=== PATIENT | male | born 1970 | race Caucasian/White ===

== ENCOUNTER → 2017-11-10 09:22 | Outpatient (CLI) | payer BC, SELFPAY ==
[2017-11-10 09:41] LABS: Basophils # 0.1 K/mm3 (0-0.2); Basophils % 0.7 % (0.1-2.0); Eosinophils # 0.2 K/mm3 (0.0-0.4); Eosinophils % 2.1 % (0.1-12.0); Hematocrit 48.5 % (42.0-52.0); Lymphocytes # 2.3 K/mm3 (0.7-4.5); Lymphocytes % 28.1 K/mm3 (10-50); Mean Corpuscular HGB Conc 30.9 g/dL (31.8-35.4); Mean Corpuscular Hemoglobin 26.8 pg (27.0-31.2); Mean Corpuscular Volume 86.8 fl (80-94); Mean Platelet Volume 7.8 fl (7.4-10.4); Monocytes # 0.5 K/mm3 (0.1-1.0); Monocytes % 5.4 % (1.7-9.3); Neutrophils # 5.3 K/mm3 (1.8-7.8); Neutrophils % 63.8 % (37.0-80.0); Platelet Count 287 K/mm3 (142-424); Red Blood Count 5.59 M/mm3 (4.60-6.20); Red Cell Distribution Width 13.5 % (11.5-17.5); White Blood Count 8.4 K/mm3 (4.8-10.8)
[2017-11-10 10:37] LABS: Alanine Aminotransferase 40 U/L (12-78); Albumin Level 3.9 gm/dL (3.4-5.0); Alkaline Phosphatase 81 U/L (46-116); Anion Gap 13.8 mEq/L (5-15); Aspartate Amino Transferase 30 U/L (15-37); Bilirubin,Total 0.7 mg/dL (0.2-1.0); Blood Urea Nitrogen 16 mg/dL (7-18); Calcium 9.5 mg/dL (8.5-10.1); Carbon Dioxide 30 mmol/L (21.0-32.0); Chloride 104 mmol/L (98-107); Creatinine,Serum 0.78 mg/dL (0.70-1.30); Estimated Glomerular Filt Rate 108 ml/min (>60); GFR (African American) 130 ML/MIN (>60); Globulin 3.8 gm/dl (1.3-3.2); Glucose 257 mg/dL (74-106); Potassium 4.8 mmoL/L (3.5-5.1); Sodium 143 mmol/L (136-145); Total Protein,Serum 7.7 gm/dL (6.4-8.2)
== END ==
PROVIDERS: Visit Provider Internal Medicine Adolescent Medicine
DX: E11.9 Type 2 diabetes mellitus without complications (principal); E78.2 Mixed hyperlipidemia
CPT/HCPCS: 36415; 80053; 83036; 85025

== ENCOUNTER → 2021-02-26 07:34 | Outpatient (CLI) | payer BC, SELFPAY ==
[2021-02-26 07:52] LABS: Basophils # 0.1 K/mm3 (0-0.2); Eosinophils # 0.2 K/mm3 (0.0-0.4); Eosinophils % 2.1 % (0.1-12.0); Hematocrit 50.3 % (42.0-52.0); Lymphocytes # 3.5 K/mm3 (0.7-4.5); Lymphocytes % 37.1 % (10-50); Mean Corpuscular HGB Conc 31.8 g/dL (31.8-35.4); Mean Corpuscular Hemoglobin 28.5 pg (27.0-31.2); Mean Corpuscular Volume 89.6 fl (80-94); Mean Platelet Volume 7.3 fl (7.4-10.4); Monocytes # 0.6 K/mm3 (0.1-1.0); Neutrophils # 5.1 K/mm3 (1.8-7.8); Neutrophils % 53.8 % (37.0-80.0); Platelet Count 297 K/mm3 (142-424); Red Blood Count 5.61 M/mm3 (4.60-6.20); Red Cell Distribution Width 13.1 % (11.5-17.5); White Blood Count 9.4 K/mm3 (4.8-10.8)
[2021-02-26 08:48] LABS: Hemoglobin A1C 10.2 % (4.0-6.0)
[2021-02-26 10:18] LABS: Chloride 102 mmol/L (98-107); Potassium 5.2 mmoL/L (3.5-5.1); Sodium 140 mmol/L (136-145)
[2021-02-26 10:20] LABS: Alanine Aminotransferase 30 U/L (12-78); Alkaline Phosphatase 85 U/L (38-126); Aspartate Amino Transferase 30 U/L (17-59); Bilirubin,Total 0.7 mg/dl (0.2-1.3); Blood Urea Nitrogen 18 mg/dl (9-20); Estimated Glomerular Filt Rate 144 ml/min (>60); GFR (African American) 174 ML/MIN (>60)
[2021-02-26 10:21] LABS: Albumin Level 4.2 g/dl (3.5-5.0); Albumin/Globulin Ratio 1.3 (1.1-1.8); Anion Gap 16.2 mEq/L (5-15); Calcium 9.4 mg/dl (8.4-10.2); Carbon Dioxide 27 mmol/L (22.0-30.0); Chol/HDL Ratio 4.7 (1-3.5); Cholesterol 207 mg/dl (140-200); Globulin 3.2 g/dL (1.3-3.2); Glucose 259 mg/dl (74-100); HDL Cholesterol 44 mg/dl (40-60); Total Protein,Serum 7.4 g/dl (6.3-8.2); Triglycerides 303 mg/dl (30-150); VLDL Cholesterol 61 mg/dL (0-40)
[2021-02-26 10:32] LABS: Direct LDL Cholesterol 113.07 mg/dL (100-129)
== END ==
PROVIDERS: Visit Provider Internal Medicine Adolescent Medicine
DX: E11.9 Type 2 diabetes mellitus without complications (principal); E78.2 Mixed hyperlipidemia
CPT/HCPCS: 36415; 80053; 80061; 83036; 85025

== ENCOUNTER 2021-04-11 08:00 | Outpatient (RCR) | payer BC, SELFPAY ==
--- NOTE | 2021-03-09 09:10 | HMH.PTOPEV ---
PT Outpatient Evaluation Rehab PT Outpatient Evaluation Start: 03/09/21 08:34 Freq: Status: Active Protocol: Document 03/09/21 08:35 KYAMARISOL (Rec: 03/09/21 09:09 OLYLISANDRO [id number]) Electronically Signed By Abhishek Resendiz, PT 03/09/21 08:35 Outpatient Therapy Subjective History Subjective History This is the initial Physical Therapy evaluation for Cali Guan. Pt is a 50 y/o male referred to PT for c/o B knee pain and R>L hip pain. Pt has past surgical history of L torn quadriceps tendon s/p fall ~ 8-9 years ago. Pt did several months of therapy w/ out incident and was able to return to full function. Pt began exercising to assist in weight loss and maintain blood sugar levels to help w/ type 2 DM. Pt reports he began havng significant pain in B knees and R hip w/ exercise and recently fell while walking causing R knee hyper- extension and left knee hyper- flexion. Chief Complaint Pain,Weakness Symptom Type Ache,Throb,Sharp,Stabbing Symptoms Relieved By Rest/Positioning,Ice Symptoms Aggravated By Physical Activity,Walking Prior Functional Limitations None Current Functional Limitations Housework,Standing,Squatting, Recreation Activity,Walking, Stairs Symptom Description Intermittent Hip/Knee Eval Gait Observation General Gait Pattern Observation Wide Based Gait Assistive Device Assistive Devices None / NA Palpation Tenderness left Knee Palpation Finding Tenderness Knee Palpation Overall Comment TTP pes anserine, MCL and quad tendon right Knee Palpation Finding Tenderness Knee Palpation Overall Comment TTP R pes anserine, MCL, quad tendon, R hip GT and Glut med/ min MM Hip Palpation Findings Tenderness MMT bilateral Hip Abduction Strength Grade 4- Good- Hip External Rotation Strength Grade 4- Good- Hip Internal Rotation Strength Grade 4- Good- Knee Extension Strength Grade 4 Good Knee Flexion Strength Grade 4 Good ROM Hip ROM Reason Not Measured Within Functional Limits Knee ROM Reason Not Measured Within Func
== END 2021-04-11 08:05 | disposition home or self-care (01) ==
LOC: PT 08:00
PROVIDERS: PCP Internal Medicine Adolescent Medicine; Visit Provider Internal Medicine Adolescent Medicine
DX: M25.562 Pain in left knee (principal); M25.561 Pain in right knee
CPT/HCPCS: 97010; 97014; 97033; 97110; 97163; 97164; G0283

== ENCOUNTER → 2021-06-07 14:09 | Outpatient (CLI) | payer BC, SELFPAY | PROVIDERS: PCP Internal Medicine Adolescent Medicine; Visit Provider Nurse Practitioner | DX: U07.1 COVID-19 (principal) | CPT/HCPCS: C9803; U0003; U0005 ==

== ENCOUNTER 2023-07-21 09:48 | Outpatient (CLI) | payer BC, SELFPAY ==
[2023-07-21 10:28] LABS: Alanine Aminotransferase 29 U/L (12-78); Albumin Level 4.2 g/dl (3.5-5.0); Albumin/Globulin Ratio 1.6 (1.1-1.8); Alkaline Phosphatase 77 U/L (38-126); Anion Gap 14.4 mEq/L (5-15); Aspartate Amino Transferase 30 U/L (17-59); Bilirubin,Total 0.8 mg/dl (0.2-1.3); Blood Urea Nitrogen 12 mg/dl (9-20); Calcium 9.4 mg/dl (8.4-10.2); Carbon Dioxide 24 mmol/L (22.0-30.0); Chloride 104 mmol/L (98-107); Chol/HDL Ratio 3.4 (1-3.5); Cholesterol 130 mg/dl (140-200); Estimated Glomerular Filt Rate 142 ml/min (>60); GFR (African American) 172 ML/MIN (>60); Globulin 2.7 g/dL (1.3-3.2); Glucose 261 mg/dl (74-100); HDL Cholesterol 38 mg/dl (40-60); Potassium 4.4 mmoL/L (3.5-5.1); Sodium 138 mmol/L (136-145); Total Protein,Serum 6.9 g/dl (6.3-8.2); Triglycerides 164 mg/dl (30-150); VLDL Cholesterol 33 mg/dL (0-40)
[2023-07-21 10:39] LABS: Direct LDL Cholesterol 62.22 mg/dL (100-129)
[2023-07-21 10:50] LABS: Basophils # 0.1 K/mm3 (0-0.2); Basophils % 0.9 % (0.1-2.0); Eosinophils # 0.2 K/mm3 (0.0-0.4); Eosinophils % 1.9 % (0.1-12.0); Hematocrit 46.6 % (42.0-52.0); Hemoglobin 15.3 g/dL (14.1-18.0); Lymphocytes # 3.3 K/mm3 (0.7-4.5); Lymphocytes % 33.7 % (10-50); Mean Corpuscular HGB Conc 32.9 g/dL (31.8-35.4); Mean Corpuscular Hemoglobin 29.1 pg (27.0-31.2); Mean Corpuscular Volume 88.5 fl (80-94); Mean Platelet Volume 8.5 fl (7.4-10.4); Monocytes # 0.4 K/mm3 (0.1-1.0); Monocytes % 4.6 % (1.7-9.3); Neutrophils # 5.8 K/mm3 (1.8-7.8); Platelet Count 281 K/mm3 (142-424); Red Blood Count 5.26 M/mm3 (4.60-6.20); Red Cell Distribution Width 13.6 % (11.5-17.5); White Blood Count 9.8 K/mm3 (4.8-10.8)
[2023-07-21 11:05] LABS: Hemoglobin A1C 9.6 % (4.0-6.0)
== END 2023-07-21 23:59 ==
PROVIDERS: PCP Internal Medicine Adolescent Medicine; Visit Provider Internal Medicine Adolescent Medicine
DX: E11.69 Type 2 diabetes mellitus with other specified complication (principal); E78.2 Mixed hyperlipidemia
CPT/HCPCS: 36415; 80053; 80061; 83036; 85025

== ENCOUNTER 2025-04-10 08:56 | Outpatient (CLI) | payer BC, SELFPAY ==
--- OUTSIDE RECORDS SUMMARY | 2025-03-09 08:00 | XMS_ITS | Continuity of Care Document ---
Author Organization [facility] Address [address] [place] [id number] Phone Care Team Providers Care Commercial Lawn Specialist Name Role Phone Gretchen Hays OD Unavailable Unavailable Allergies, Adverse Reactions, Alerts Substance Reaction Status Criticality No Known Allergies Active No Inform ation Medications Medication Instructions Dosage Effective Dates (start - stop) Status Comments Xdemvy 0.25 % eye drops instill 1 drop by ophthalmic route every 12 hours for 6 weeks into both eyes 1.00 drop - Active Demodex : B88.0. Blepharitis of lt eye, upper and lower eyelids: H01.00B. Blepharitis of right eye, upper and lower eyelids: H01.00A. Mounjaro 15 mg/0.5 mL subcutaneous pen injector inject (15MG) by subcutaneous route every week 15 MG - Active Vitamin B-12 1,000 mcg tablet take 1 capsule by oral route every day for 1 day 1 capsule - Active ginseng 100 mg capsule - Active ginkgo biloba 40 mg tablet - Active Farxiga 10 mg tablet take 1 tablet by oral route every day in the morning 10 MG - Active potassium 99 mg tablet take 1 capsule by oral route every day - Active [place]wood 3 Fish Oil 684 mg-1,200 mg capsule,delayed release take 2 Capsule by Oral route every day 2 Capsule - Active Aspirin Low Dose 81 mg tablet,delayed release take 1 tablet by oral route every day 81 MG - Active omeprazole 20 mg capsule,delayed release take 1 capsule by oral route every day before a meal 20 MG - Active Zoloft 50 mg tablet take 1 tablet by oral route every day 50 MG - Active lisinopril 10 mg tablet take 1 tablet by oral route every day 10 MG - Active glimepiride 2 mg tablet take 1 tablet by oral route every day 2 MG - Active metformin ER 1,000 mg tablet,extended release 24hr take 1 tablet by oral route every day with the evening meal 1000 MG - Active Mounjaro 10 mg/0.5 mL subcutaneous pen injector inject (10MG) by subcutaneous route every week 10 MG - No Longer Active potassium 99 mg tablet take 1 capsule by oral route every day - No Longer Active Procedures Procedure Date OFFICE/OUTPATIENT VISIT, EST FUNDUS PHOTOGRAPHY WITH INTERPRETATION A ND REPORT OCT, Retina, W/Interp OFFICE/OUTPATIENT VISIT, EST FUNDUS PHOTOGRAPHY WITH INTERPRETATION A ND REPORT OFFICE/OUTPATIENT VISIT, EST FUNDUS PHOTOGRAPHY WITH INTERPRETATION A ND REPORT EYE EXAM, Comprehensive, Established Feb EYE EXAM, Comprehensive, Established Jan EYE EXAM, Comprehensive, Established October EYE EXAM, Comprehensive, Established October EYE EXAM, Comprehensive, Established Sep EYE EXAM, Comprehensive, Established Sep EYE EXAM, Comprehensive, New Advance Directives Directive Yes / No Effective Date File Name No Information Encounters Encounter Description Practice Location Reason(s) For Visit Diagnoses Date Provider Providers Copied on Encounter OFFICE/OUTPA TIENT VISIT, EST Solomon [facility], [address] [place] [address], [id number], tel:[phone] [place] dry AMD early stage OS (chief complaint) Type 2 DM w/o complicationDry AMD, Bilateral, Early StageDemodex BlepharitisBlephari tis of right eye, upper and lower eyelidsBlepharitis of lt eye, upper and lower eyelidsPVD OUCombined cataract, bilateral Feb- Saúl Godinez. [address] [place] [address], [id number] , . tel:[phone] Referring Provider: Marcelino Herr, [address] [place] [address], [id number] . tel:[phone] OFFICE/OUTPA TIENT VISIT, [facility], [address] [place] [address], [id number], tel:[phone] [place] Cat, DM and Dry AMD check (chief complaint) Type 2 DM w/o complicationDry AMD, Left Eye, Early StagePost LasikCombined cataract, bilateralDry Eye OU Sep-2 3 4 Hays Gretchen. [address] [place] [address], [id number] , . tel: [phone] Referring Provider: Marcelino Herr, [address] [place] [address], [id number] . tel:[phone] OFFICE/OUTPA TIENT VISIT, [facility] Solomon [facility], [address] [place] [address], [id number], tel:[phone] [place] cat ck (chief complaint) Dry AMD, Bilateral, Early StageType 2 DM w/o complicationCombine d cataract, bilateral Sep- 3 Hays Gretchen. [address] [place] [address], [id number] , . tel: [phone] Referring Provider: Marcelino Herr, [address] [place] [address], [id number] . tel:[phone] [facility], [address] [place] [address], [id number], tel:[phone] [place] Diabetic exam (chief complaint) Type 2 DM w/o complicationDry AMD, Left Eye, Early StagePost LasikCombined cataract, bilateral Sep-1 2 2 Hays Gretchen. [address] [place] [address], [id number] , . tel:[phone] Referring Provider: Marcelino Herr, [address] [place] [address], [id number] . tel:[phone] [facility], [address] [place] [address], [id number], tel:[phone] [place] DM (chief complaint) Blepharitis of left upper eyelidBlepharitis of right upper eyelidDry Eye OUType 2 DM w/o complicationDry AMD, Left Eye, Early Stagepseudophakia 0202 1 Percal Rosa. [address] [place] [address], [id number] , . tel:[phone] Referring Provider: Marcelino Herr, [address] [place] [address], [id number] . tel:[phone] [facility], [address] [place] [address], [id number], tel:[phone] [address] DM check (chief complaint) Blephariti s (chief complaint) Type 2 DM w/o complicationDemodex BlepharitisMGD, Right eyeMGD, Left eye 3-201 9 Yeni Benson. [address] [place] [address], [id number] , . tel:[phone] Referring Provider: Marcelino Herr, [address] [place] [address], [id number] . tel:[phone] [facility], [address] [place] [address], [id number], tel:[phone] [address] [place] NIDDM (chief complaint) Lasik ck (chief complaint) Type 2 DM w/o complicationBlephar itis, right upper lidBlepharitis, left upper lidMGD 0 7-201 8 Yeni Benson. [address] [place] [address], [id number] , . tel:[phone] Referring Provider: Marcelino Herr, [address] [place] [address], [id number] . tel:[phone] [facility], [address] [place] [address], [id number], tel:[phone] VAN Jiangricardo John WADE Diabetic ck (chief complaint) Type 2 DM w/o complicationPost Lasik 7 Yeni Benson. [address] [place] [address], [id number] , . tel:[phone] Referring Provider: Marcelino Herr, [address] [place] [address], [id number] . tel:[phone] [facility], [address] [place] [address], [id number], tel:[phone] VAN Yonathansusanricardo Lopez SHERI Yearly Diabetic Exam (chief complaint) Type 2 DM w/o complication 6 Yeni Benson. [address] [place] [address], [id number] , . tel: [phone] [facility], [address] [place] [address], [id number], tel:[phone] V[address] WADE diabetic exam (chief complaint) decreased vision (chief complaint) No Information 5 Yeni Benson. [address] [place] [address], [id number] , . tel: [phone] Family History Family Member Type Diagnosis Age At Onset Father Problem (finding) hypertension Mother Problem (finding) hypertension Immunizations Vaccine Date Status Comments Flu (split) (3 yrs or older) administered Source: Other Provider Payers Payer name Insurance type Covered green party ID Authoriza tion(s) [employer] BL [id number] Social History Type Description Quantity Date Captured Comments Alcohol Use Details No Caffeine Use Details coffee Tobacco Use Status Current non-smoker Smoking Status Never smoker Non-Smoking Tobacco Use Details : No Details Available : No Details Available Sex Male Chief Complaint And Reason For Visit From encounter dated '03/09/2025 12:00'. dry AMD early stage OS (chief complaint). Description: pt presents today for a yearly DFE in OU. vision in OU is steadily worsening since last visit. no glare noted. brown floaters have appeared since last visit. clear floaters in OU also noted but stable since last visit. dryness in OU noted but stable since last visit. PT c/o both eyes/lids being itchy, using OTC lid scrubs currently.p\ LASIK OU [id number] unknown BS [address] Neil herrera tears OU QAMpt is on new medications butunsure of which Reason For Referral Reason For Referral No Information Plan Of Treatment Date Type Action Status Appointment Cali Guan BOOKED Patient Education Blepharitis: Care Instr uctions completed History Of Present Illness Encounter Date Complaint History Of Prese nt Illness dry AMD early stage OS pt presen ts today for a yearly DFE in OU. vision in OU is steadily worsening since last visit. no glare noted. brown floaters have appeared since last visit. clear floaters in OU also noted but stable since last visit. dryness in OU noted but stable since last visit. PT c/o both eyes/lids being itchy, using OTC lid scrubs currently.p\ LASIK OU [id number] unknown BS [address] Neil herrera tears OU QAMpt is on new medications but unsure of which Cat, DM and Dry AMD check 1 year DFE Post LASIK OU Pt. states decreased near vision, no issues driving at night not bothered by glare and bright headlightslongstanding constant floater and stable Gtts: AT's OU PRNNIDDM2 Last A1C: 9.1 taken last 6 months ago managed by Dr. Sanchez FBSL: 185 2 weeks ago cat ck Pt presents for 1 year cat and DME ck. Pt states that his vision is not bad . Pt denies seeing any glare or halos from headlights. Pt does have to be closer to road signs to see them, but it is still tolerable. Pt can read print, he only has lighting issues, so he does need extra light. ET TheraTears PRN OU T2DM / LA1C ~7 6 months ago/ LBS 180s last week Diabetic exam Pt presents for yearly f/u for Diabetic exam OU; No prior Retinopathy. VA unchanged since last time; Although feels as if he's losing distance every year. H/o Dry eye OU; Blepharitis BUL secondary to Dry eye; Using ATs PRNDry AMD OS; Has 1 floater roaming around. Has had for a couple of years. Not currently bothersome but is very persistent at times. T2- NIDDM Last A1C - unknown; BS runs 180-[address] Ced Luo; DM 1 yr Type 2 DM w /o complications. Pt states vision is stable OU. Pt having floaters OS, no flashes OU. Uses Thera tears not daily, 1x daily if needed. DM check NIDDM type 2 kaveh gnosed 2009, FBS was 234 this morning. last A1C was 9 checked around 6 months ago, the patient noted he has an upcoming appointment with PCP Dr. Luo B/p in office was 120/70. The patient also stated FBS & A1C has been fluctuating due to insurance/ medication changes.VA is stable ,and has improved since last visit. denies flash/ floaters. Using OTC AT OU along with lid scrubs. Denies trouble with glare. Blepharitis The patient repo rts doing daily lid scrubs along with using OTC AT daily this has helped with irritation and dry eyes. TheraTears OU QD & prnshampoo/ lid scrubs OU dailyHx: Refractive sx. OU 1998 NIDDM The 47 year old male presents for yearly evaluation of NIDDM w/o complications OU. Diagnosed in 2009. Blood sugar runs around 280-300, 289 this morning. A1c was 9.0 when last checked a year ago. Managed by Dr. Luo. Lasik ck The patient is p resent for yearly Lasik ck OU (1998). Pt states vision has declined over the last year, more so at near. TheraTears PRN OU Diabetic ck The 46 year old male presents for evaluation of Diabetic ck in the right eye and left eye. Type 2 for 7 years. BS 278. AIC 11.0. distance vision>near vision has decreased over the past year. Pt does not wear any glasses for correction. Pt went off diabetes medication from Jan 2016-May 2016 in which the AIC # read high during that time. ABSThera Tears PRN OU Yearly Diabetic Exam Pt states d istance vision seems unchanged, but a little more trouble with near.BS-doesn't check [id number] diabetic exam The 44 year old male presents for evaluation of diabetic exam in the right eye and left eye. The condition is stable. Checks blood sugars daily. Blood pressure 130/82SE decreased vision The patient is present for evaluation of decreased vision in the right eye and left eye. It affects distance vision. The condition is moderate. The condition is described as blurring. In addition, the condition is associated with trouble reading signs - traffic, street signs and store signs. Feels the eyes may be dry at times.uses thera tears occasionalySe Functional Status Date Functional Assessmen t No Information Instructions Date Instruction Additional Infor ross 1 year DM DFE with OPTOS and mac OCT Related to Type 2 DM w/o complication Impression/Plan Related to Type 2 DM w/o complication Impression/Plan Related to Dry A MD, Bilateral, Early Stage Impression/Plan Impression/Plan Related to PVD O U Impression/Plan Related to Combi cirilo cataract, bilateral Impression/Plan Related to Type 2 DM w/o complication Impression/Plan Related to Dry A MD, Left Eye, Early Stage Impression/Plan Related to Combi cirilo cataract, bilateral Impression/Plan Related to Dry E ye OU 1 year DM, CAT, AMD DFE - optos Related to Dry AMD, Bilateral, Early Stage Impression/Plan Related to Combi cirilo cataract, bilateral Impression/Plan Related to Type 2 DM w/o complication Impression/Plan Related to Dry A MD, Bilateral, Early Stage 1 year CAT/DM DFE Related to Typ e 2 DM w/o complication Impression/Plan Related to Post Lasik Impression/Plan Related to Dry A MD, Left Eye, Early Stage Impression/Plan Related to Type 2 DM w/o complication Impression/Plan Related to Combi cirilo cataract, bilateral Impression/Plan Related to Dry A MD, Left Eye, Early Stage Impression/Plan 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 Impression/Plan Related to Type 2 DM w/o complication Impression/Plan EDN 1 year Diabetic Exam OU Rela crystal to Type 2 DM w/o complication Impression/Plan Related to Demod ex Blepharitis Impression/Plan Related to Type 2 DM w/o complication EDN 1 year DM check Related to T ype 2 DM w/o complication Impression/Plan Related to Type 2 DM w/o complication Impression/Plan 1 year VAD/Diabetic check Relate d to Type 2 DM w/o complication Follow up - 1 year V AD/Diabetic check Related to Type 2 DM w/o complication Impression/Plan - La sik results look good -stable Related to Post Lasik Impression/Plan - Pl an: Continue treatment as directed by your Physician/Composition Worker. Monitor yearly with dilated exam.Discussion: No diabetic retinopathy found. Monitor vision for sudden changes and call if any changes noted. Scribe:lc Related to Type 2 DM w/o complication EDN 1 year Diabetic Exam OU Rela crystal to Type 2 DM w/o complication Follow up - EDN 1 ye ar Diabetic Exam OU Related to Type 2 DM w/o complication Impression/Plan Related to Post Lasik Impression/Plan - Pl an: Continue treatment as directed by your Physician/Composition Worker. Monitor yearly with dilated exam.Discussion: No diabetic retinopathy found. Discussed ocular and systemic benefits of blood sugar control. Monitor vision for sudden changes and call if any changes noted. Scribe: RL Related to Type 2 DM w/o complication 1 year VAD/diabetic check Relate d to Diabetes Type II Follow up - 1 year V AD/diabetic check Related to Diabetes Type II Impression/Plan - Re turn Visit: Dr. Jaime 1 year diabetic examPlan:Continue treatment as directed by your Physician/Composition Worker.Discussion : No diabetic retinopathy found. Discussed ocular and systemic benefits of blood sugar control. Monitor vision for sudden changes and call if any changes noted. Scribe:lc Related to Diabetes Type II Impression/Plan - Re turn Visit: Dr. JaimePlan: Continue to monitorDiscussion:Lasik results still look good. Will need readers for up close, around age 47.Scribe:lc Related to Post LASIK Assessments Type Assessment Date assessment Type 2 DM w/o complication impression Type 2 DM w/o complication: E11. 9 assessment Dry AMD, Bilateral, Early Stage impression Dry AMD, Bilateral, Early Stage: H35.3131 assessment Demodex Blepharitis assessment Blepharitis of right eye, upper and lower eyelids assessment Blepharitis of lt eye, upper and lower eyelids assessment PVD OU impression PVD OU: H43.813 assessment Combined cataract, bilateral Feb impression Combined cataract, bilateral: H2 5.813 Patient Care Teams Name Effective Dates (start - stop) Status Members No Information
[2025-04-10 09:15] LABS: Hematocrit 45.1 % (42.0-52.0); Hemoglobin 14.5 g/dL (14.1-18.0); Immature Granulocytes % 0.1 %; Mean Corpuscular HGB Conc 32.2 g/dL (31.8-35.4); Mean Corpuscular Hemoglobin 28.4 pg (27.0-31.2); Mean Corpuscular Volume 88.3 fl (80-94); Nucleated Red Blood Cells % 0 %; Platelet Count 324 K/mm3 (142-424); Red Blood Count 5.11 M/mm3 (4.60-6.20); Red Cell Distribution Width-SD 44.1 fL; White Blood Count 8.8 K/mm3 (4.8-10.8)
[2025-04-10 09:54] LABS: Albumin Level 5.1 g/dl (3.5-5.0); Chloride 102 mmol/L (98-107); Sodium 136 mmol/L (136-145)
[2025-04-10 09:55] LABS: Potassium 4.4 mmoL/L (3.5-5.1)
[2025-04-10 09:57] LABS: Alanine Aminotransferase 19 U/L (12-78); Albumin/Globulin Ratio 2.3 (1.1-1.8); Alkaline Phosphatase 76 U/L (38-126); Anion Gap 12.4 mEq/L (5-15); Aspartate Amino Transferase 23 U/L (17-59); Bilirubin,Total 1.0 mg/dl (0.2-1.3); Blood Urea Nitrogen 11 mg/dl (9-20); Carbon Dioxide 26 mmol/L (22.0-30.0); Creatinine,Serum 0.70 mg/dl (0.66-1.25); Estimated Glomerular Filt Rate 118 ml/min (>60); GFR (African American) 143 ML/MIN (>60); Globulin 2.2 g/dL (1.3-3.2); Total Protein,Serum 7.3 g/dl (6.3-8.2)
[2025-04-10 09:58] LABS: Calcium 9.4 mg/dl (8.4-10.2); Cholesterol 100 mg/dl (140-200); Glucose 170 mg/dl (74-100); HDL Cholesterol 44 mg/dl (40-60); Triglycerides 105 mg/dl (30-150)
[2025-04-10 11:09] LABS: Hemoglobin A1C 8.8 % (4.0-6.0)
== END 2025-04-10 23:59 | disposition home or self-care (01) ==
LOC: LAB 08:58
PROVIDERS: PCP Internal Medicine Adolescent Medicine; Visit Provider Internal Medicine Adolescent Medicine
DX: E78.2 Mixed hyperlipidemia; K21.00 Gastro-esophageal reflux disease with esophagitis, without bleeding
CPT/HCPCS: 36415; 80053; 80061; 83036; 85025